=== PATIENT | female | born 1950 | race Caucasian/White ===

== ENCOUNTER 2022-02-20 08:10 | Emergency (ER) | payer MEDICARE, OTHER, SELFPAY ==
--- NOTE | ~2022-02-20 | CT_ITS ---
EXAMINATION: NONCONTRAST HEAD CT NONCONTRAST CERVICAL SPINE CT INDICATION INFORMATION: Fall. Pain. Headache. COMPARISON: 11/15/2012 TECHNIQUE: Separate noncontrast CT examinations of the head and cervical spine were performed. Coronal and sagittal images were created for each examination at the technologist workstation. This CT examination was performed using dose optimization techniques as appropriate, variously including the following: *Automated exposure control *Adjustment of mA and/or kV according to patient size (this includes techniques or standardized protocols for targeted exams where dose is matched to indication/reason for exam; i.e. extremities or head) *Use of iterative reconstruction technique DLP: 1248 mGy-cm FINDINGS: Head: There is subarachnoid hemorrhage tracking along both the left and right frontal lobes. This tracks to the left sylvian fissure and along the left temporal lobe as well. Small amount of blood products track along the anterior falx. There is a component of inferior left frontal lobe parenchymal hemorrhage. This area measures 1.2 x 0.9 x 0.8 cm. There is no evidence of acute territorial infarction. No abnormal mass effect or midline shift is seen. Pérez to white matter differentiation is well preserved. No hydrocephalus. No significant volume loss. Patchy periventricular and deep white matter hypoattenuation is consistent with mild small vessel ischemic changes. There is a subgaleal hematoma overlying the right parietal-occipital region. Associated nondisplaced fracture of the right occipital bone extending to the skull base.. The mastoid air cells and visualized portions of the paranasal sinuses are well aerated. Cervical spine: There is anatomic alignment of the vertebral bodies and posterior elements. The atlantoaxial and atlantooccipital articulations are intact. Vertebral body heights are maintained. There is multilevel intervertebral disc space narrowing with endplate osteophyte formation and facet arthropathy. Multilevel posterior disc osteophyte complexes. No evidence of acute fracture. No prevertebral soft tissue swelling. Visualized portions of the lung apices are unremarkable. The thyroid gland is unremarkable. CT/CT cervical spine wo IV con IMPRESSION: 1. Subarachnoid hemorrhage tracking along both frontal lobes, left temporal lobe, and along the anterior falx. There is also a component of parenchymal hemorrhage in the inferior left frontal lobe. 2. Nondisplaced right occipital bone fracture. 3. No acute fracture or malalignment of the cervical spine. Mild degenerative changes. This critical result was discussed with Alicia Graham NP by telephone at 02/20/2022 9:51 AM and it was ascertained that the content and urgency of the report was understood at the time of direct communication.
[2022-02-20 08:30] VITALS: BP 200/73; PULSE 71; RESP 18; TEMP 37.1; O2SAT 98; BMI 38.0
--- NOTE | 2022-02-20 09:06 | ED_ITS ---
HPI - Head Injury General Chief complaint: Head Injury Stated complaint: Head Pain S/P Fall 02/20/22 Time Seen by Provider: 02/20/22 08:58 Source: patient Mode of arrival: ambulatory Limitations: no limitations History of Present Illness HPI Narrative: 71-year-old female with a history of asthma, hypertension, depression presents with headache, nausea after head injury which occurred just prior to arrival. Patient tells me she tripped down approximately 4 stairs hitting the back of her head and hitting her right knee. Cannot recall hitting her head so ? brief LOC. Since the fall has had headache and nausea. No vomiting, vision changes, dizziness, neck pain. No chest pain or abdominal pain. No anticoagulation use. Related Data Allergies Allergy/AdvReac Type Severity Reaction Status Date / Time No Known Drug Allergies Allergy Unknown NONE Unverified 01/05/20 18:24 [NO KNOWN DRUG ALLERGIES] mold and dust Allergy Unknown Uncoded 06/04/16 00:00 Review of Systems Review of Systems: Yes all other systems are reviewed and are negative Constitutional: Constitutional: Reports no additional constitutional complaints, Denies body ache(s), Denies chills, Denies fever(s), Reports headache(s) and Denies weakness Eyes: Eyes: Reports no additional eye complaints and Denies change in vision ENT: Reports system reviewed and no additional complaints, except as documented, Denies dizziness, Reports headache(s), Denies nasal congestion, Denies nasal discharge and Denies neck pain Cardiovascular: Cardiovascular: Reports no additional cardiovascular complaints, Denies chest pain, Denies leg edema and Denies dyspnea Respiratory: Respiratory: Reports no additional respiratory complaints, Denies cough and Denies dyspnea Gastrointestinal: Gastrointestinal: Reports no additional gastrointestinal complaints, Denies abdominal pain, Denies diarrhea, Reports nausea and Denies vomiting Genitourinary: Genitourinary: Reports no additional female genitourinary complaints and Denies urinary incontinence Musculoskeletal: Musculoskeletal: Reports no additional musculoskeletal complaints, Denies back pain, Denies arthralgias, Denies joint swelling, Denies neck pain, Denies numbness and Denies tingling Integumentary/Breasts: Skin/Breast: Reports system reviewed and no additional complaints, except as docu and Denies rash Neurologic: Reports system reviewed and no additional complaints, except as documented, Denies Abnormal speech present, Denies dizziness, Reports head ache(s), Denies numbness, Denies tingling and Denies weakness [facility] Past Medical History Attestation statement: The following information was validated with the patient. Source: old records reviewed and nursing notes reviewed Social History Social History Alcohol intake: current Alcohol intake frequency: a few times a week Smoked in Last 30 Days: No Use of substances other than those prescribed or required for medical reasons: No Advance Directives: Yes Advance Directives Information Provided: Yes Advance Directives on File: No Physical Exam Vital Signs: Vital Signs: Last Vital Signs Temp 98.8 F 02/20/22 08:30 Pulse 74 02/20/22 10:32 Resp 16 02/20/22 10:32 BP 147/45 H 02/20/22 10:32 Pulse Ox 97 02/20/22 10:32 O2 Del Method 02/20/22 10:32 BMI result Body Mass Index 38.0 Const: General: cooperative, healthy appearing, comfortable and no acute distress Orientation/consciousness: patient oriented x3 Limitations: no limitations HEENT: Head: Yes normal to inspection, No Zhu's sign and No raccoon eyes Ears: hearing grossly normal bilaterally and TM's normal bilaterally General nose exam: Normal external nose present Face and sinus: Yes normal facial exam Mouth: Normal oral and palatal mucosa present Throat: Yes posterior oropharynx normal Eyes: General: appearance normal, both eyes and all related structures Pupils: Equal, round and reactive pupils present Neck: Other: no midline tenderness/step offs or deformities Neck: Yes normal visual inspection and Yes full ROM Chest: Chest palpation & inspection: normal inspection of the chest Resp: Effort & Inspection: normal respiratory effort Auscultation: clear to auscultation bilaterally Cardio: Rate: regular rate Rhythm: regular rhythm Peripheral pulses: Peripheral pulses 2+ throughout GI: Inspection: Yes normal to inspection Palpation (GI): Soft to palpation and nontender Auscultation: normal bowel sounds Back/Spine/Pelvis: Thoracic/Lumbar Spine: thoracic and lumbar spine normal to inspection Skin: General skin exam: no rashes or lesions noted Neuro: General: patient oriented x3, no focal motor deficits and normal sensation to monofilament Cranial nerves: Yes CN's II-XII intact bilaterally, Yes Equal, round and reactive pupils present, Yes Bilaterally intact EOM presen t, Yes Nystagmus not present, Yes Normal facial strength present and Yes Midline tongue present Cognition (Neuro): normal cognition Speech: No Abnormal speech present Gait exam (Neuro): Normal gait present Motor exam (neuro): 5/5 motor strength present throughout Sensory Exam: Normal double simultaneous stimulation for sensation Extrem: General: Yes normal to inspection NIH Stroke Scale Internal: Initial- Upon Arrival Level of Consciousness: Alert Level of Consciousness Questions: Answers both questions correctly Level of Consciousness Commands: Performs both tasks correctly Best Gaze: Normal Visual: No visual loss Facial Palsy: Normal Motor Arm (Right): No drift Motor Arm (Left): No drift Motor Leg (Right): No drift Motor Leg (Left): No drift Limb Ataxia: Absent Sensory: Normal Best Language: No aphasia Dysarthia: Normal Extinction and Inattention: No abnormality Score: 0 Course Course Course Narrative: 949-call from [facility]. Patient has bilateral frontal subarachnoid hemorrhages intraparenchymal with a nondisplaced occipital skull fracture. BP 200 systolic. Re-evaluated patient. Neurological exam unchanged. To start Cardene drip for blood pressure control with goal systolic 160. HOB 30degrees Will send COVID screen Images sent through [facility] at [facility]. Will need transfer to tertiary care center for Trauma Service and Neurosurgery evaluation. We called and spoke to transfer line and waiting for call back from trauma service Consultations Consultation #1: [phone]-spoke to Trauma Service Dr. Peter gomez [facility]. Accepted transfer. MDM - Head Injury MDM Narrative Medical decision making narrative: 71 yo female here with headache/nausea after mechanical fall with head strike. NO AC therapy. Normal neuro exam. [place] CT head injury [address] head/cervical spine. VSS Differential Diagnosis Differential diagnosis: Likely concussion without loss of consciousness, closed head injury and subarachnoid hematoma Medical Records Attestation: I reviewed the patient's medical records. Lab Data Attestation: I reviewed the patient's lab results. Result diagrams: 02/20/22 09:59 02/20/22 09:59 Labs: Lab Results 02/20/22 02/20/22 Range/Units 09:59 09:59 WBC 12.8 H (4.8-10.8) X10*3/uL RBC 4.84 (4.20-5.50) X10*6/uL Hgb 14.2 (12.0-16.0) g/dl Hct 43.7 (37.0-47.0) % MCV 90.3 (80.0-98.0) fL MCH 29.3 (27.0-33.0) pg MCHC 32.5 (31.0-35.0) g/dl RDW 12.9 (11.0-16.0) % Plt Count 268 (160-400) X10*3/uL MPV 11.2 (9.4-12.3) fL Immature Gran % (Auto) 0.4 (0.0-0.4) % Neut % (Auto) 68.7 (45-73) % Lymph % (Auto) 22.0 (20-40) % [place] % (Auto) 4.7 (2-11) % Eos % (Auto) 3.7 (0-4) % Baso % (Auto) 0.5 (0-2) % Lymph # (Auto) 2.8 (1.2-4.9) X10*3/uL [place] # (Auto) 0.6 (0.1-1.2) X10*3/uL Eos # (Auto) 0.5 H (0.0-0.4) X10*3/uL Baso # (Auto) 0.1 (0.0-0.2) X10*3/uL Abs Immat Gran (auto) 0.05 H (0.00-0.03) X10*3/uL Absolute Neuts (auto) 8.8 H (2.0-8.3) x10*3/uL Absolute Nucleated RBC 0.000 (0.0-0.012) X10*3/uL Nucleated RBC % (auto) 0.0 (0.0-0.2) /100WBC COVID-19 (MICHAEL) Negative (Negative) COVID-19 Clin Com See Note Imaging Data Ct head/cervical spine: Attestation: I personally reviewed and interpreted this imaging study as follows: Radiologist's impression: FINDINGS: Head: There is subarachnoid hemorrhage tracking along both the left and right frontal lobes. This tracks to the left sylvian fissure and along the left temporal lobe as well. Small amount of blood products track along the anterior falx. There is a component of inferior left frontal lobe parenchymal hemorrhage. This area measures 1.2 x 0.9 x 0.8 cm. There is no evidence of acute? territorial infarction. No abnormal mass effect or midline shift is seen. Pérez to white matter differentiation is well preserved.? No hydrocephalus. No significant volume loss. Patchy periventricular and deep white matter hypoattenuation is consistent with mild small vessel ischemic changes. There is a subgaleal hematoma overlying the right parietal-occipital region. Associated nondisplaced fracture of the right occipital bone extending to the skull base.. The mastoid air cells and visualized portions of the paranasal sinuses are well aerated. Cervical spine: There is anatomic alignment of the vertebral bodies and posterior elements. The atlantoaxial and atlantooccipital articulations are intact. Vertebral body heights are maintained. There is multilevel intervertebral disc space narrowing with endplate osteophyte formation and facet arthropathy. Multilevel posterior disc osteophyte complexes. No evidence of acute fracture. No prevertebral soft tissue swelling. Visualized portions of the lung apices are unremarkable. The thyroid gland is unremarkable. CT/CT cervical spine wo IV con IMPRESSION: 1.? Subarachnoid hemorrhage tracking along both frontal lobes, left temporal lobe, and along the anterior falx. There is also a component of parenchymal hemorrhage in the inferior left frontal lobe. 2.? Nondisplaced right occipital bone fracture. 3.? No acute fracture or malalignment of the cervical spine. Mild degenerative changes. Critical Care Time Critical Care Time Critical Care Time: Yes Total Critical Care Time: 60 Attestation: Reassessment for neurological status, blood pressure control, transfer to tertiary care center Discharge Plan Discharge Clinical Impression: Subarachnoid hematoma, Fracture of occipital bone of skull with loss of consciousness Patient Disposition: [facility] Transfer Details: [facility] Interventions: Acute Care Transfer Worksheet (ED) Last Done: 02/20/22 11:07 Discharge Date/Time: 02/20/22 10:30
[2022-02-20 10:00] VITALS: BP 174/51; PULSE 71; RESP 18; O2SAT 97
--- NOTE | 2022-02-20 10:04 | PC.NURSE ---
PT VOMITING STOMACH BILE. SHE FEELS DIZZY. PROVIDER AWARE AND MEDICATION ORDERED. IV ACCESS WAS GAINED
[2022-02-20] MEDS: ondansetron HCL 4 MG/2 ML VIAL IVPUSH (10:05)
[2022-02-20 10:06] LABS: MANUAL DIFF FLAG NO
[2022-02-20 10:08] LABS: Basophils Absolute Auto 0.1 X10*3/uL (0.0-0.2); Basophils Percent Auto 0.5 % (0-2); Eosinophils Absolute Auto 0.5 X10*3/uL (0.0-0.4); Eosinophils Percent Auto 3.7 % (0-4); Hematocrit 43.7 % (37.0-47.0); Hemoglobin 14.2 g/dl (12.0-16.0); Imm Gran Abs Auto 0.05 X10*3/uL (0.00-0.03); Imm Gran Pct Auto 0.4 % (0.0-0.4); Lymphocytes Absolute Auto 2.8 X10*3/uL (1.2-4.9); Mean Corpuscular HGB Conc 32.5 g/dl (31.0-35.0); Mean Corpuscular Hemoglobin 29.3 pg (27.0-33.0); Mean Corpuscular Volume 90.3 fL (80.0-98.0); Mean Platelet Volume 11.2 fL (9.4-12.3); Monocytes Absolute Auto 0.6 X10*3/uL (0.1-1.2); Monocytes Percent Auto 4.7 % (2-11); Neutrophils Absolute Auto 8.8 x10*3/uL (2.0-8.3); Neutrophils Percent Auto 68.7 % (45-73); Platelet Count 268 X10*3/uL (160-400); Red Blood Count 4.84 X10*6/uL (4.20-5.50); Red Cell Distribution Width 12.9 % (11.0-16.0); White Blood Count 12.8 X10*3/uL (4.8-10.8)
[2022-02-20 10:18] VITALS: BP 174/51; PULSE 72
[2022-02-20] MEDS: niCARdipine HCL 25 MG in 0.9 % Sodium Chloride 250 ML 52 MG IVCONT (10:18)
[2022-02-20 10:28] LABS: COVID-19 Test Negative (Negative)
[2022-02-20 10:32] VITALS: BP 147/45; PULSE 74; RESP 16; O2SAT 97
--- NOTE | 2022-02-20 10:53 | PC.NURSE ---
multiple attempts to call report to [facility]. No answer
--- NOTE | 2022-02-20 10:54 | PC.NURSE ---
PT REMAINS AWAKE, ALERT AND ORIENTED. ANSWERING QUESTIONS APPROPRIATELY. SKIN WARM AND DRY. RESP UNLABORED. DENIES N/V AFTER BEING MEDICATED WITH ZOFRAN. NO NEURO DEFICITS NOTED.
--- NOTE | 2022-02-20 11:01 | PC.NURSE ---
CONTINUE TO ATTEMPT TO CALL REPORT TO [facility]. CALL NOT ANSWERED. SPOKE TO [employer] X 2 THAT TRANSFERRED THIS RN.
--- NOTE | 2022-02-20 11:06 | PC.NURSE ---
SPOKE WITH PAU DUEÑAS. NURSE TO NURSE GIVEN.
== END 2022-02-20 10:30 | disposition short-term general hospital (02) ==
PROVIDERS: Nurse Practitioner Family; Emergency Provider Emergency Medicine; PCP Internal Medicine
DX: S02.11GA Other fracture of occiput, right side, initial encounter for closed fracture (principal); S06.6X9A Traumatic subarachnoid hemorrhage with loss of consciousness of unspecified duration, initial encounter; W10.8XXA Fall (on) (from) other stairs and steps, initial encounter; Z20.822 Contact with and (suspected) exposure to COVID-19; Y93.89 Activity, other specified; Y92.018 Other place in single-family (private) house as the place of occurrence of the external cause; Y99.9 Unspecified external cause status
CPT/HCPCS: 70450; 72125; 85025; 87635; 96365; 96375; 99285; J2405

== ENCOUNTER 2022-07-31 13:10 | Emergency (ER) | payer MEDICARE, OTHER, SELFPAY ==
--- NOTE | ~2022-07-31 | CT_ITS ---
EXAMINATION: CT brain and CT cervical spine without IV contrast. CLINICAL INDICATION: Fall. Head head. COMPARISON: 02/20/2022. TECHNIQUE: 5 mm thin axial and reformatted 2 mm thin sagittal and coronal images of brain were obtained. Subsequently axial 3 mm thin and reformatted 2 mm thin sagittal and coronal images of cervical spine were obtained. DLP [id number]. This CT examination was performed using dose optimization technique as appropriate, variously including the following: Automated exposure control Adjustment of MA and/or KV according to patient size(this includes techniques or standardized protocols for targeted exams where dose is matched to indication/reason for exam; extremities or head. Use of iterative reconstruction techniques. FINDINGS: Brain: There is no acute intra-axial, extra-axial bleed, masses or midline shift. There is no acute infarction evolution. 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 There is no edema. The levi to white matter differentiation maintained normal. The lateral ventricles are symmetrical in size and configuration. Bone windows reveal right occipital fracture unchanged to 02/20/2022. There is no scalp soft tissue swelling. The paranasal sinuses are well-aerated with minimal mucoperiosteal thickening dependent maxillary sinuses. Rest of the paranasal sinuses and mastoid air cells are well-aerated. Cervical spine: There is mild straightening of cervical lordosis. The vertebral and heights and alignment is normal. There is loss of C3-C4, C4-C5, C5-C6 and C6-C7 disc heights with moderate ventral and posterior cervical spondylosis. There is mild degenerative spurring C1-C2 vertebra. There is dystrophic calcification prevertebral soft tissues anterior C2 vertebra likely old injury. No visible acute fracture, dislocation or subluxation seen. There is a left C7-T1 facet joint arthropathy. The craniovertebral junction and the C1-C2 alignment is normal. The lung apices are clear. CT/CT cervical spine wo IV con IMPRESSION: 1. No acute intracranial process seen. 2. There is a right occipital bone fracture unchanged to 02/20/2022. 3. There is no acute fracture, dislocation or subluxation seen in the cervical spine. Degenerative spondylosis and left C7-T1 facet arthropathy.
--- NOTE | 2022-07-31 13:21 | ED_ITS ---
HPI - Head Injury General Chief complaint: Head Injury <Alicia Carter NP - Last Filed: 07/31/22 13:51> Stated complaint: head injury <Alicia Carter NP - Last Filed: 07/31/22 13:51> Time Seen by Provider: 07/31/22 13:28 <Alicia Carter NP - Last Filed: 07/31/22 13:51> Source: patient <ALBARO Gabriel - Last Filed: 07/31/22 15:10> Mode of arrival: ambulatory <ALBARO Gabriel Last Filed: 07/31/22 15:10> Limitations: no limitations <ALBARO Gabriel Last Filed: 07/31/22 15:10> History of Present Illness HPI Narrative: 72-year-old female with history of a subarachnoid hemorrhage and skull fracture in February of 2022 after a fall presents to the ER for evaluation of a left-sided headache and bump on her head after she tripped and fell at about 1245 today. She fell in the parking lot and hit her head on a curb. She did not lose consciousness. She sustained a bump on the left side of her forehead and has a left-sided headache. She denies any vision changes, weakness, tingling, numbness. No vomiting or nausea. No confusion or lethargy. She is not on anticoagulation. <ALBARO Gabriel - Last Filed: 07/31/22 15:10> MD Complaint: head injury and head pain <ALBARO Gabriel Last Filed: 07/31/22 15:10> Onset (ago): hour(s) (2) <ALBARO Gabriel Last Filed: 07/31/22 15:10> Mechanism of Injury: fall <ALBARO Gabriel Last Filed: 07/31/22 15:10> Place: outdoors <ALBARO Gabriel Last Filed: 07/31/22 15:10> Loss of Consciousness: no <ALBARO Gabriel Last Filed: 07/31/22 15:10> Location of injury: frontal <ALBARO Gabriel Last Filed: 07/31/22 15:10> Severity: moderate <ALBARO Gabriel - Last Filed: 07/31/22 15:10> Severity scale (1-10): 6 <ALBARO Gabriel - Last Filed: 07/31/22 15:10> Quality: aching <ALBARO Gabriel - Last Filed: 07/31/22 15:10> Radiation: none <ALBARO Gabriel - Last Filed: 07/31/22 15:10> Other Injuries: upper extremity (superficial abrasion to the left palmar aspect of the hand) <ALBARO Gabriel - Last Filed: 07/31/22 15:10> Associated symptoms: denies other symptoms <ALBARO Gabriel - Last Filed: 07/31/22 15:10> Related Data Allergies/Adverse reactions: Allergies Allergy/AdvReac Type Severity Reaction Status Date / Time No Known Drug Allergies Allergy Unknown NONE Verified 07/31/22 13:22 [NO KNOWN DRUG ALLERGIES] mold and dust Allergy Unknown Unknown Uncoded 07/31/22 13:22 <Alicia Carter NP - Last Filed: 07/31/22 13:51> Review of Systems Review of Systems: Yes all other systems are reviewed and are negative <ALBARO Gabriel - Last Filed: 07/31/22 15:10> [facility] Social History Social History: Social History Alcohol intake: current Alcohol intake frequency: a few times a week Advance Directives: No <Alicia Carter NP - Last Filed: 07/31/22 13:51> Physical Exam Vital Signs: Vital Signs: Last Vital Signs Temp 98 F 07/31/22 13:23 Pulse 65 07/31/22 13:23 Resp 19 07/31/22 13:23 BP 156/73 H 07/31/22 13:23 Pulse Ox 96 07/31/22 13:23 O2 Del Method Room Air 07/31/22 13:23 BMI result Body Mass Index 36.6 <Alicia Carter NP - Last Filed: 07/31/22 13:51> Vital Signs: Last Vital Signs Temp 98 F 07/31/22 13:23 Pulse 65 07/31/22 13:23 Resp 19 07/31/22 13:23 BP 156/73 H 07/31/22 13:23 Pulse Ox 96 07/31/22 13:23 O2 Del Method Room Air 07/31/22 13:23 BMI result Body Mass Index 36.6 <ALBARO Gabriel - Last Filed: 07/31/22 15:10> Appearance: Alert. Oriented X3. No acute distress. Head: Left side of the forehead with a 3 cm area of swelling and tenderness above the left eyebrow. Head is otherwise normocephalic and atraumatic. Eyes: Pupils equal, round and reactive to light. EOMI. ENT: Pharynx normal. No tonsillar swelling or exudate. No blood behind the tympanic membranes. Neck: Normal inspection. Neck supple. No midline tenderness. CVS: Normal heart rate and rhythm. Pulses normal. Respiratory: No respiratory distress. Breath sounds normal. Abdomen: Soft and nontender. +BS x4 no bruising. Skin: Skin warm and dry. Normal skin color. Normal skin turgor. No rashes. Extremities: No lower extremity edema. No joint swelling. Left hand on the palmar aspect just below the pinky finger there is a superficial abrasion and skin flap. No active bleeding. Area is tender. Neurovascularly intact distally. Neuro/psych: Oriented X 3. No motor deficit. No sensory deficit. CN II-XII intact. Normal speech and cognition. Steady gait. <ALBARO Gabriel - Last Filed: 07/31/22 15:10> Course Course Course Narrative: This is a rapid medical exam. Deferred additional HPI, ROS, PE to primary provider. 72 yo female with history of ICH from a mechanical fall 02/2022 w/ transfer to trauma center but no surgical intervention needed, asthma, HTN, depression here with head strike after trip and fall with no LOC. NO AC therapy. Will need CT head/cervical spine Also has abrasion to left hand with FROM, abrasion to right knee. Tetanus UTD <Alicia Carter NP - Last Filed: 07/31/22 13:51> Medications Administered Discontinued Medications Generic Name Dose Route Start Last Admin Trade Name Freq PRN Reason Stop Dose Admin Acetaminophen 975 mg 07/31/22 14:02 07/31/22 14:30 Acetaminophen 325 Mg Tablet PO 07/31/22 14:03 975 mg ONCE ONE Administration <Alicia Carter NP - Last Filed: 07/31/22 13:51> Medications Administered Discontinued Medications Generic Name Dose Route Start Last Admin Trade Name Maribel PRN Reason Stop Dose Admin Acetaminophen 975 mg 07/31/22 14:02 07/31/22 14:30 Acetaminophen 325 Mg Tablet PO 07/31/22 14:03 975 mg ONCE ONE Administration <ALBARO Gabriel - Last Filed: 07/31/22 15:10> Medical Decision Making Medical Decision Making MDM Narrative: 72-year-old female with history of a subarachnoid hemorrhage and skull fracture after a fall last February presents to the ER for evaluation of left- sided headache and small hematoma after trip and fall earlier this afternoon. No LOC. Neurologically intact. CT scan does not show any evidence of ICH. <ALBARO Gabriel - Last Filed: 07/31/22 15:10> Differential Diagnosis Differential Diagnoses: The differential diagnosis associated with the presentation includes <ALBARO Gabriel - Last Filed: 07/31/22 15:10> Contusion, closed head injury, subarachnoid hemorrhage, subdural hematoma, epidural hematoma <ALBARO Gabriel - Last Filed: 07/31/22 15:10> Independent Interpretation I performed an independent interpretation of an: CT Scan <ALBARO Gabriel - Last Filed: 07/31/22 15:10> Interpretation: Agree 3 neurologist read, no evidence of ICH. <ALBARO Gabriel - Last Filed: 07/31/22 15:10> Radiology Impression Discussion of test interpretation with radiology: I have reviewed the radiologist's reading. <ALBARO Gabriel - Last Filed: 07/31/22 15:10> Radiologist Impression: CT/CT head/brain wo IV con IMPRESSION: 1.? No acute intracranial process seen. 2.? There is a right occipital bone fracture unchanged to 02/20/2022. 3.? There is no acute fracture, dislocation or subluxation seen in the cervical spine. Degenerative spondylosis and left C7-T1 facet arthropathy. <ALBARO Gabriel - Last Filed: 07/31/22 15:10> Independent Historian Clinical information obtained from an independent historian. History obtained from or confirmed by: Spouse <ALBARO Gabriel Last Filed: 07/31/22 15:10> External Record Review External record reviewed: Outpatient record, Prior outpatient labs and Prior outpatient radiology <ALBARO Gabriel - Last Filed: 07/31/22 15:10> Prescription Management I considered prescription management with: Pain Medication <ALBARO Gabriel - Last Filed: 07/31/22 15:10> Procedures Laceration Laceration 1: Site: hand <ALBARO Gabriel - Last Filed: 07/31/22 15:10> Side (If applicable): left <ALBARO Gabriel - Last Filed: 07/31/22 15:10> Size (cm): 1.5 <ALBARO Gabriel - Last Filed: 07/31/22 15:10> Description: irregular and contaminated <ALBARO Gabriel Last Filed: 07/31/22 15:10> Depth: simple, single layer <ALBARO Gabriel - Last Filed: 07/31/22 15:10> Pre-repair: wound explored, irrigated extensively and deep structures intact <ALBARO Gabriel - Last Filed: 07/31/22 15:10> Skin layer closed with: other (Dermabond and Steri-Strips) <ALBARO Gabriel - Last Filed: 07/31/22 15:10> Critical Care Time Critical Care Time Critical Care Time: No <ALBARO Gabriel - Last Filed: 07/31/22 15:10> Discharge Plan Discharge Clinical Impression: Closed head injury <Alicia Carter NP - Last Filed: 07/31/22 13:51> Patient Disposition: Home, Self-Care <Alicia Carter NP - Last Filed: 07/31/22 13:51> Instructions: Head Injury (ED) <Alicia Carter NP - Last Filed: 07/31/22 13:51> Additional Instructions: Your CT scan today did not show any acute injuries or bleeding. Use ice to the area as needed for pain and swelling. Take Motrin and Tylenol as needed for pain. Rest, avoid strenuous physical and mental activity. Avoid prolonged screen time. Skin glue and Steri-Strips were used to close the superficial wound on your left hand. These will come off on their own, usually within 1 week. Do not get wet for 24 hours. Follow-up with primary care doctor as needed. If you develop new or worsening symptoms call 911 or come back to the ER for further evaluation. <Alicia Carter NP - Last Filed: 07/31/22 13:51> Referrals: Karlos Garland MD [Primary Care Provider] - <Alicia Carter NP - Last Filed: 07/31/22 13:51>
[2022-07-31 13:23] VITALS: BP 156/73; PULSE 65; RESP 19; TEMP 36.6; O2SAT 96; BMI 36.6
[2022-07-31] MEDS: Acetaminophen 325 MG TABLET 975 MG PO (14:30)
--- NOTE | 2022-07-31 14:36 | PC.NURSE ---
pt medicated per provider order for 6/10 headache, left hand pain.
== END 2022-07-31 15:20 | disposition home or self-care (01) ==
PROVIDERS: Emergency Provider Emergency Medicine; PCP Internal Medicine
DX: S61.412A Laceration without foreign body of left hand, initial encounter (principal); M54.2 Cervicalgia; R51.9 Headache, unspecified; W01.10XA Fall on same level from slipping, tripping and stumbling with subsequent striking against unspecified object, initial encounter; Y93.9 Activity, unspecified; Y92.480 Sidewalk as the place of occurrence of the external cause; Y99.9 Unspecified external cause status
CPT/HCPCS: 12001; 70450; 72125; 99283; 99284

== ENCOUNTER 2022-10-25 13:49 | Emergency (ER) | payer MEDICARE, OTHER, SELFPAY ==
[2022-10-25 13:54] VITALS: BP 149/63; PULSE 78; RESP 16; TEMP 36.1; O2SAT 96; BMI 38.1
[2022-10-25 15:55] VITALS: BP 126/49; PULSE 71; RESP 16; TEMP 36.7; O2SAT 93
--- NOTE | 2022-10-25 16:17 | ED.GENADULT ---
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 radiating to her left lower rib no cough no shortness of breath pain get worse on movements no history of coronary artery disease no diaphoresis no nausea no vomiting Related Data Previous Rx's Medication Instructions Recorded cyclobenzaprine 10 mg tablet 10 mg PO Q8H #20 tabs 10/25/22 ibuprofen 600 mg tablet 600 mg PO Q6H PRN fever or pain 10/25/22 #30 tabs Allergies Allergy/AdvReac Type Severity Reaction Status Date / Time No Known Drug Allergies Allergy Unknown NONE Verified 07/31/22 13:22 [NO KNOWN DRUG ALLERGIES] mold and dust Allergy Unknown Unknown Uncoded 07/31/22 13:22 Review of Systems Review of Systems: Yes all other systems are reviewed and are negative [facility] Social History Social History Alcohol intake: current Alcohol intake frequency: a few times a week Advance Directives: No Advance Directives Information Provided: No Physical Exam ED Vital Signs: Vital Signs - 24 hr 10/25/22 13:54 10/25/22 15:55 Temperature 97.0 F 98.0 F Pulse Rate 78 71 Respiratory Rate 16 16 Blood Pressure 149/63 H 126/49 L Pulse Oximetry 96 93 Oxygen Delivery Method Room Air Room Air BMI result Body Mass Index 38.1 Appearance: Alert. Oriented X3. No acute distress. Eyes: PERRLA, No Nystagmus ENT: Pharynx normal. Oral Mucosa moist Neck: Normal inspection. Neck supple. CVS: Normal heart rate and rhythm. Pulses normal. Respiratory: No respiratory distress. Equal air entry bilateral, no wheezing/rales/rhonchi Abdomen: Soft and nontender. Bowel sounds are present, no mass palpable, no CVA tenderness Skin: Skin warm and dry. Normal skin color. Normal skin turgor. back: Diffuse tenderness left rhomboids muscle no rash noticed Extremities: No lower extremity edema. No calf tenderness Neuro: Oriented X 3. No motor deficit. No sensory deficit. Medications Administered Discontinued Medications Generic Name Dose Route Start Last Admin Trade Name Maribel PRN Reason Stop Dose Admin Cyclobenzaprine HCl 10 mg 10/25/22 16:35 10/25/22 16:43 Cyclobenzaprine Hcl 10 Mg Tablet PO 10/25/22 16:36 10 mg ONCE ONE Administration Ibuprofen 600 mg 10/25/22 16:35 10/25/22 16:43 Ibuprofen 600 Mg Tablet PO 10/25/22 16:36 600 mg ONCE ONE Administration Medical Decision Making Medical Decision Making [facility] Narrative: Patient clinically with left rhomboid strain lab workup negative for any acute ACS Differential Diagnosis Rhomboid muscle strain/shingles/pneumonia Lab Data [facility] Lab Attestation statement: I reviewed the patient's lab results. 10/25/22 14:07 10/25/22 14:07 Labs: Lab Results 10/25/22 10/25/22 10/25/22 Range/Units 14:07 14:07 14:07 WBC 9.2 (4.8-10.8) X10*3/uL RBC 4.37 (4.20-5.50) X10*6/uL Hgb 13.3 (12.0-16.0) g/dl Hct 40.3 (37.0-47.0) % MCV 92.2 (80.0-98.0) fL MCH 30.4 (27.0-33.0) pg MCHC 33.0 (31.0-35.0) g/dl RDW 12.9 (11.0-16.0) % Plt Count 256 (160-400) X10*3/uL MPV 11.0 (9.4-12.3) fL Immature Gran % (Auto) 0.2 (0.0-0.4) % Neut % (Auto) 52.8 (45-73) % Lymph % (Auto) 33.1 (20-40) % [place] % (Auto) 7.2 (2-11) % Eos % (Auto) 6.0 H (0-4) % Baso % (Auto) 0.7 (0-2) % Lymph # (Auto) 3.1 (1.2-4.9) X10*3/uL [place] # (Auto) 0.7 (0.1-1.2) X10*3/uL Eos # (Auto) 0.6 H (0.0-0.4) X10*3/uL Baso # (Auto) 0.1 (0.0-0.2) X10*3/uL Abs Immat Gran (auto) 0.02 (0.00-0.03) X10*3/uL Absolute Neuts (auto) 4.9 (2.0-8.3) x10*3/uL Absolute Nucleated RBC 0.000 (0.0-0.012) X10*3/uL Nucleated RBC % (auto) 0.0 (0.0-0.2) /100WBC Sodium 144 (135-145) mmol/L Potassium 4.1 (3.3-5.1) mmol/L Chloride 107 (96-108) mmol/L Carbon Dioxide 26 (22-29) mmol/L Anion Gap 15 (12-20) BUN 17 H (9-16) mg/dL Creatinine 0.97 (0.5-1.4) mg/dL Estim Creat Clear Calc 59.2 Estimated GFR 57 Random Glucose 121 H (60-115) mg/dL Calcium 10.6 H (8.4-10.2) mg/dL Troponin I High Sens < 2.7 (<3.5-17.0) ng/L Independent Interpretation I performed an independent interpretation of an: EKG Interpretation: Normal sinus rhythm heart rate 79 beats per minute normal interval normal axis no acute ST-T changes no acute ischemia Discharge Plan Discharge Clinical Impression: Upper back pain on left side Patient Disposition: Home, Self-Care Instructions: Musculoskeletal Pain (ED) Additional Instructions: pain in upper back is musculoskeletal take ibuprofen and muscle relaxants as prescribed Follow with PCP as needed Prescriptions: New cyclobenzaprine 10 mg tablet 10 mg PO Q8H Qty: 20 0RF ibuprofen 600 mg tablet 600 mg PO Q6H PRN (Reason: fever or pain) Qty: 30 0RF
--- NOTE | 2022-10-25 16:38 | PC.NURSE ---
PT WAS ASSESSED BY DR JONES. PLAN FOR PO MEDICATION FOR MUSCULAR SKELETAL COMPLAINTS. PT IN NO OUTWARD DISTRESS.
== END 2022-10-25 17:57 | disposition home or self-care (01) ==
PROVIDERS: Emergency Provider Internal Medicine; PCP Internal Medicine
DX: M54.6 Pain in thoracic spine (principal); R07.81 Pleurodynia
CPT/HCPCS: 36415; 80048; 84484; 85025; 93005; 99283; 99284